=== PATIENT | female | born 1985 | race Caucasian/White ===

== ENCOUNTER 2017-03-10 15:53 | Outpatient (CLI) | payer MEDICAID ==
[~2017-03-10] VITALS: Ht 152.4 cm; Wt 62.9 kg
[~2017-03-10 15:53] MED LIST: HYDR-3498 PO
[2017-03-10 16:34] VITALS: BP 119/79; PULSE 92; RESP 20; Ht 152.4 cm; Wt 62.9 kg
[2017-03-10] MEDS ORDERED: PRENAT PO (16:37)
[2017-03-10] MEDS ORDERED: FERR325C PO (16:37)
--- NOTE | 2017-03-10 16:42 | CONS ---
Date/Time of Note Date/Time of Note DATE: 03/10/17 TIME: 16:39 Assessment/Plan Assessment/Plan Additional Assessment/Plan 31 y/o at 31w 1d with low back pain, suspect musculoskeletal. No e/o ptl. -discharge home with ptl precautions -f/u with OB Consultation Date/Type/Reason Admit Date/Time Reason for Consultation Backpain Hx of Present Illness e1 y/o at 31w 1d who presents with low backpain. Patient reports pain improved with rest. Concerned she had episode of spotting last week after intercourse. No further bleeding. Denies LOF. Getting PNC, no complications. h/o term x.2 Per HPI. Other systems negative. Past Medical History Medical History: no pertinent history Past Surgical History Past Surgical Hx: no surgical history Social History Denies habits. Smoking Status: Never smoker Exam/Review of Systems Vital Signs Vitals Vital Signs Date Time Temp Pulse Resp B/P Pulse Ox O2 Delivery O2 Flow Rate FiO2 03/10/17 16:34 98.2 92 20 119/79 97 Room Air Gen: NAD HEENT: NCAT CV: RRR Pulm: CTAB Abd: gravid, NT Back: no CVAT Ext: NT FHT: reactive Erskine: no UCs FANY ZAIDI March 10, 2017 16:42
--- NOTE | 2017-03-10 18:06 | TRIAGE ---
OB Triage Datetime Report Generated by CPN: 03/10/2017 18:06 Datetime: 03/10/2017 16:33 Time of Arrival: 03/10/2017 15:53 EGA: 31.0 Arrived By: Ambulatory Arrived From: Home Chief Complaint: LOW BACK PAIN Movement: Present Contractions: Denies/Absent Rupture of Membranes: Denies Vaginal Bleeding: None Vaginal Discharge: Denies Recent Sexual Intercouse: Yes Patient Complaints: Back Pain Time Provider Notified: 03/10/2017 16:30 Provider Notified: DR. ZAIDI Initial Plan: NST Datetime: 03/10/2017 16:29 Stage of : OB Triage Labor Evaluation Frequency: 0 Duration (sec)2399: 0 Quality: Mild Resting Tone [place]: Relaxed Contraction Comments: NO UC'S NOTED PT DENIES UC'S Heart Rate FHR Baseline Rate: 135 Monitor Mode: External US Variability: Moderate 6-25 bpm Accelerations: 15X15 Decelerations: None Category: Category II Datetime: 03/10/2017 16:23 Stage of : OB Triage Maternal Assessment Level of Consciousness: Fully Conscious DTR's/Clonus: DTRs 2+; No Clonus Headache: Denies Blurred Vision: No Respiratory Effort: Unlabored; Regular Rhythm; Equal Expansion Breath Sounds, Left: Clear and Equal Breath Sounds, Right: Clear and Equal Nausea/Vomiting: Denies RUQ Epigastric Pain: Denies Facial Edema: None Temperature Route: Axillary Fall Risk Assessment History of Falling: (0) No Secondary Diagnosis: (0) No Ambulatory Aid: (0) Bedrest/Nurse Assist IV Therapy: (0) No Gait: (0) Normal/Bedrest/Immobile Mental Status: (0) Oriented to Own Ability Fall Score: 0 Fall Risk Score Definition: No Risk: No action required
== END 2017-03-10 16:40 | disposition home or self-care (01) ==
LOC: L-D 15:53 → OBT 15:53
PROVIDERS: ATTEND Obstetrics & Gynecology
DX: O26.893 Other specified pregnancy related conditions, third trimester (principal); M54.5 Low back pain; Z3A.31 31 weeks gestation of pregnancy
CPT/HCPCS: G0463

== ENCOUNTER 2017-03-21 14:30 | Outpatient (CLI) | payer MEDICAID ==
[~2017-03-21] VITALS: Ht 152.4 cm; Wt 67.7 kg
[~2017-03-21 14:30] MED LIST changes: +FERR325C PO; -HYDR-3498 PO; +PRENAT PO
[2017-03-21 14:52] VITALS: Ht 152.4 cm; Wt 67.7 kg
[2017-03-21 14:53] VITALS: BP 113/72; RESP 16
--- NOTE | 2017-03-21 15:53 | RADRPT ---
PROCEDURE: US OB biophysical profile. CLINICAL INDICATION: CHECK UP TECHNIQUE: Multiple sonographic images of the pelvis were obtained. The images were reviewed on a PACS workstation. COMPARISON: None FINDINGS: Presentation: Cephalic Cardiac activity is present with 131 beats per minute. The placenta is anterior, grade II. MVP: Not available. Amniotic fluid index: 16.4 cm Biophysical profile: movement 2/2 tone 2/2. breathing 2/2 MAX 2/2 Total 06/06 IMPRESSION: 1. Normal biophysical profile. 2. Single viable fetus present C A cephalic lie with a heart rate of 131 beats per minute. RPTAT:AAJJ . Physician Shay Date Time Electronically viewed and signed by Jaren Martínez Physician on 03/21/2017 15:52 /
[2017-03-21 17:48] LABS: ADD UMIC YES; URINE BILIRUBIN (Dip) NEGATIVE (NEGATIVE); URINE BLOOD (Dip) TRACE (NEGATIVE); URINE COLOR LT. YELLOW (YELLOW); URINE GLUCOSE (Dip) NEGATIVE (NEGATIVE); URINE KETONES (Dip) NEGATIVE (NEGATIVE); URINE LEUKOCYTE ESTERASE (Dip) 2+ (NEGATIVE); URINE NITRITE (Dip) NEGATIVE (NEGATIVE); URINE TOTAL PROTEIN (Dip) NEGATIVE (NEGATIVE); URINE UROBILINOGEN (Dip) 0.2 E.U./dL (0.1-1.0)
[2017-03-21 17:49] LABS: ADD SCAN DIFF NO; BASOPHILS % 0.4 % (0.0-2.0); EOSINOPHILS # 0.1 10^3/ul (0.0-0.5); HEMATOCRIT 31.8 % (37.0-47.0); HEMOGLOBIN 11.1 g/dl (12.0-16.0); LYMPHOCYTES # 1.8 10^3/ul (0.8-2.9); LYMPHOCYTES % 25.1 % (15.0-51.0); MEAN CORPUSCULAR HEMOGLOBIN 30.2 pg (29.0-33.0); MEAN CORPUSCULAR HGB CONC 34.9 g/dl (32.0-37.0); MEAN CORPUSCULAR VOLUME 86.4 fl (82.0-101.0); MEAN PLATELET VOLUME 9.4 fl (7.4-10.4); MONOCYTE # 0.5 10^3/ul (0.3-0.9); MONOCYTES % 7.4 % (0.0-11.0); NEUTROPHIL # 4.8 10^3/ul (1.6-7.5); NEUTROPHILS % 65.4 % (39.0-77.0); PLATELET COUNT 224 10^3/UL (140-415); RED BLOOD COUNT 3.68 10^6/ul (4.20-5.40); RED CELL DISTRIBUTION WIDTH 13.2 % (11.5-14.5); WHITE BLOOD COUNT 7.3 10^3/ul (4.8-10.8)
[2017-03-21 17:58] LABS: ALBUMIN/GLOBULIN RATIO 0.96; CALCIUM 8.6 mg/dl (8.4-10.2); CREATININE 0.51 mg/dl (0.44-1.00); POTASSIUM 3.3 mmol/L (3.5-5.1); TOTAL PROTEIN 6.1 g/dl (6.1-8.1); URIC ACID 3.8 mg/dl (3.1-7.9)
[2017-03-21 17:59] LABS: BACTERIA,URINE MODERATE; SQUAMOUS EPITHELIAL CELL,UR MODERATE; URINE RBCS 0-2 /HPF (0)
--- NOTE | 2017-03-21 18:29 | TRIAGE ---
OB Triage Datetime Report Generated by CPN: 03/21/2017 18:29 Datetime: 03/21/2017 15:52 Stage of : OB Triage Labor Evaluation Frequency: X2 Monitor Mode: External Duration (sec)2399: 30-50 Pattern: Normal: <= 5 Contractions in 10 Minutes Resting Tone [place]: Relaxed Heart Rate FHR Baseline Rate: 125 Monitor Mode: External US Variability: Moderate 6-25 bpm Accelerations: 15X15 Decelerations: None Category: Category I Pain Assessment Pain Presence: None/Denies Pain Type: N/A Datetime: 03/21/2017 15:40 Comments: US AT BEDSIDE Datetime: 03/21/2017 14:42 Stage of : OB Triage Assessment Type: Triage Maternal Assessment Level of Consciousness: Fully Conscious DTR's/Clonus: DTRs 2+; No Clonus Headache: Denies Blurred Vision: No Respiratory Effort: Unlabored; Regular Rhythm; Equal Expansion Breath Sounds, Left: Clear and Equal Breath Sounds, Right: Clear and Equal Nausea/Vomiting: Denies RUQ Epigastric Pain: Denies Lower Extremities Edema: None Degree: None Upper Extremities Edema: None Degree: None Facial Edema: None Temperature Route: Axillary Fall Risk Assessment History of Falling: (0) No Secondary Diagnosis: (0) No Ambulatory Aid: (0) Bedrest/Nurse Assist IV Therapy: (0) No Gait: (0) Normal/Bedrest/Immobile Mental Status: (0) Oriented to Own Ability Fall Score: 0 Fall Risk Score Definition: No Risk: No action required Datetime: 03/21/2017 14:40 Time of Arrival: 03/21/2017 14:40 EGA: 32.4 Arrived By: Ambulatory Arrived From: Dr. Gaston Chief Complaint: PT C/O RIGHT VISUAL DISTURBANCE. PT FEELS SOMETHING IN HER RIGH EYES Movement: Present Contractions: Denies/Absent Rupture of Membranes: Denies Vaginal Bleeding: None Vaginal Discharge: Denies Recent Sexual Intercouse: Denies Abdominal Trauma: Not Applicable Patient Complaints: None Time Provider Notified: 03/21/2017 15:21 Provider Notified: DR. ZARATE Initial Plan: NSR BPP- TO CLEAR BABY Datetime: 03/10/2017 16:33 EGA: 31.0 Datetime: 03/10/2017 16:23 Fall Score: 0 Fall Risk Score Definition: No Risk: No action required
--- NOTE | 2017-03-21 18:44 | CONS ---
Date/Time of Note Date/Time of Note DATE: 03/21/17 TIME: 18:26 Consultation Date/Type/Reason Admit Date/Time March 21, 2017 OB triage consult Reason for Consultation This patient is 31 years old 3 para 2 postdelivery spontaneous vaginal packing with estimated date of confinement May 12, 2017 which makes her now 32 weeks and 4 days Came to OB triage with complaint of visual disturbance on her right eye. It raised the question of possible atypical PIH. On examination she is a well-developed well-nourished lady with no particular complaint except difficulty on her right on. Her vital signs are within normal limits with blood pressure of 112/72, pulse rate of 90, respiration 16, temperature 98. No ankle edema. Knee-jerk reflex about 1+ No complaint of headache Abdomen is soft No contraction. heart tone is normal, with fairly good variability, no deceleration. Her lab works were reviewed. Her urinalysis was completely normal. Her CBC was done except for mild anemia there was no other abnormal finding hemoglobin 11.1 hematocrit PIH lab test were basically normal On ultrasound study there was a single fetus in cephalic presentation with a heartbeat of 131 placenta was grade 2 and anterior her amniotic fluid index was 16.4 with biophysical profile of 8/8 Laboratory Tests Test 03/21/17 17:00 03/21/17 17:05 White Blood Count 7.310^3/ul Red Blood Count 3.6810^6/ul Hemoglobin 11.1g/dl Hematocrit 31.8% Mean Corpuscular Volume 86.4fl Mean Corpuscular Hemoglobin 30.2pg Mean Corpuscular Hemoglobin Concent 34.9g/dl Red Cell Distribution Width 13.2% Platelet Count 58543^3/UL Mean Platelet Volume 9.4fl Neutrophils % 65.4% Lymphocytes % 25.1% Monocytes % 7.4% Eosinophils % 1.0% Basophils % 0.4% Nucleated Red Blood Cells % 0.0/100WBC Neutrophils # 4.810^3/ul Lymphocytes # 1.810^3/ul Monocytes # 0.510^3/ul Eosinophils # 0.110^3/ul Basophils # 0.010^3/ul Nucleated Red Blood Cells # 0.010^3/ul Sodium Level 134mmol/L Potassium Level 3.3mmol/L Chloride Level 108mmol/L Carbon Dioxide Level 22mmol/L Anion Gap 7 Blood Urea Nitrogen 7mg/dl Creatinine 0.51mg/dl Glucose Level 102mg/dl Uric Acid 3.8mg/dl Calcium Level 8.6mg/dl Total Bilirubin 0.0mg/dl Direct Bilirubin 0.00mg/dl Indirect Bilirubin 0.0mg/dl Aspartate Amino Transf (AST/SGOT) 24IU/L Alanine Aminotransferase (ALT/SGPT) 35IU/L Alkaline Phosphatase 88IU/L Total Protein 6.1g/dl Albumin 3.0g/dl Globulin 3.10g/dl Albumin/Globulin Ratio 0.96 Urine Color LT. YELLOW Urine Clarity CLEAR Urine pH 6.5 Urine Specific [place] <=1.005 Urine Ketones NEGATIVE Urine Nitrite NEGATIVE Urine Bilirubin NEGATIVE Urine Urobilinogen 0.2 E.U./dL Urine Leukocyte Esterase 2+ Urine Microscopic RBC 0-2/HPF Urine Microscopic WBC 0-2/HPF Urine Squamous Epithelial Cells MODERATE Urine Bacteria MODERATE Urine Hemoglobin TRACE Urine Glucose NEGATIVE% Urine Total Protein NEGATIVE Constitutional: No chills, No diaphoresis, No disoriented, No febrile, No improved, No no complaints, No other, No poor po, No requiring IVF, No requiring O2 Eyes: other (Difficulty with right eye), No discharge, No no complaints, No pain, No redness, No visual change ENT: No bleeding, No congestion, No discharge, No dysphagia, No no complaints, No other, No pain, No sore throat Respiratory: No cough, No no complaints, No other, No pain, No pleuritic pain, No shortness of breath, No sputum, No wheezing Cardiovascular: No chest pain, No edema, No lightheadedness, No no complaints, No orthopenea, No other, No palpitations, No paroxysmal nocturnal dyspnea Gastrointestinal: No blood, No constipation, No decreased appetite, No diarrhea , No flatus, No nausea, No no complaints, No other, No pain, No passing stool, No vomiting Genitourinary: No bleeding, No discharge, No dysuria, No flank pain, No hematuria, No no complaints, No other Musculoskeletal: No back pain, No bone/joint pain, No neck pain, No no complaints, No other, No restricted range of motion, No swelling Skin: No bruising, No erythema, No laceration, No no complaints, No other, No pruritis, No rash, No skin lesions Neurologic: No confusion, No dizziness, No focal-weakness, No headache, No no complaints, No other, No seizure, No syncope Endocrine: No dry skin, No no complaints, No other, No polydypsia, No polyuria , No temp intolerance Lymphatic: No adenopathy, No lymphadema, No no complaints, No other, No tender nodes Psychological: No anxiety, No confusion, No depression, No nl mood/affect, No no complaints, No other, No suicidal Additional Comments Due to visual disturbance as she has to her right arm she will be referred to rail assembler for further studies Social History Smoking Status: Never smoker Exam/Review of Systems Vital Signs Vitals Vital Signs Date Time Temp Pulse Resp B/P Pulse Ox O2 Delivery O2 Flow Rate FiO2 03/21/17 14:53 16 113/72 Room Air Results Result Diagram: 03/21/17 1700 03/21/17 1700 Results 24 hrs Laboratory Tests Test 03/21/17 17:00 03/21/17 17:05 White Blood Count 7.3 Red Blood Count 3.68 #L Hemoglobin 11.1 #L Hematocrit 31.8 #L Mean Corpuscular Volume 86.4 Mean Corpuscular Hemoglobin 30.2 Mean Corpuscular Hemoglobin Concent 34.9 Red Cell Distribution Width 13.2 Platelet Count 224 Mean Platelet Volume 9.4 # Neutrophils % 65.4 Lymphocytes % 25.1 Monocytes % 7.4 Eosinophils % 1.0 Basophils % 0.4 Nucleated Red Blood Cells % 0.0 Neutrophils # 4.8 Lymphocytes # 1.8 Monocytes # 0.5 Eosinophils # 0.1 Basophils # 0.0 Nucleated Red Blood Cells # 0.0 Sodium Level 134 L Potassium Level 3.3 L Chloride Level 108 Carbon Dioxide Level 22 Anion Gap 7 L Blood Urea Nitrogen 7 Creatinine 0.51 Glucose Level 102 Uric Acid 3.8 Calcium Level 8.6 Total Bilirubin 0.0 L Direct Bilirubin 0.00 Indirect Bilirubin 0.0 Aspartate Amino Transf (AST/SGOT) 24 Alanine Aminotransferase (ALT/SGPT) 35 Alkaline Phosphatase 88 Total Protein 6.1 Albumin 3.0 L Globulin 3.10 Albumin/Globulin Ratio 0.96 Urine Color LT. YELLOW Urine Clarity CLEAR Urine pH 6.5 Urine Specific [place] <=1.005 L Urine Ketones NEGATIVE Urine Nitrite NEGATIVE Urine Bilirubin NEGATIVE Urine Urobilinogen 0.2 E.U./dL Urine Leukocyte Esterase 2+ H Urine Microscopic RBC 0-2 Urine Microscopic WBC 0-2 Urine Squamous Epithelial Cells MODERATE Urine Bacteria MODERATE Urine Hemoglobin TRACE Urine Glucose NEGATIVE Urine Total Protein NEGATIVE SUZETTE ESTRADA MD March 21, 2017 18:38
== END 2017-03-21 18:22 | disposition home or self-care (01) ==
LOC: L-D 14:30 → OBT 14:30
PROVIDERS: ATTEND Obstetrics & Gynecology
DX: O26.893 Other specified pregnancy related conditions, third trimester (principal); H53.9 Unspecified visual disturbance; Z3A.32 32 weeks gestation of pregnancy
CPT/HCPCS: 36415; 76818; 80053; 81001; 84560; 85025; Z7500; G0463

== ENCOUNTER 2017-05-10 09:35 | Inpatient (IN) | payer MEDICAID ==
[~2017-05-10] VITALS: Ht 152.4 cm; Wt 65.1 kg
[2017-05-10 09:42] VITALS: Ht 152.4 cm; Wt 65.1 kg
[2017-05-10 09:43] VITALS: BP 124/83; PULSE 80; RESP 20
[2017-05-10] MEDS ORDERED: LACTATED RINGER'S 1,000 ML IV SCH (13:13)
--- NOTE | 2017-05-10 13:24 | TRIAGE ---
OB Triage Datetime Report Generated by CPN: 05/10/2017 13:24 Datetime: 05/10/2017 13:00 Labor Evaluation Frequency: 2-5 Monitor Mode: External Duration (sec)2399: 40-80 Quality: Strong Pattern: Normal: <= 5 Contractions in 10 Minutes Resting Tone [place]: Relaxed Heart Rate FHR Baseline Rate: 130 Monitor Mode: External US FHR Baseline Changes: No Baseline Change Variability: Moderate 6-25 bpm Accelerations: 15X15 Decelerations: None Category: Category I Pain Assessment Pain Scale: 7 Pain Presence: Intermittent Pain Type: Contraction Pain Location: Abdomen Pain Goal: 2 Pain Relief Measures: Comfort Measures Datetime: 05/10/2017 12:22 Vaginal Exam Dilatation (cms): 3.5 Effacement (%): 100 Station: -2 Exam By: MAY Datetime: 05/10/2017 11:00 Labor Evaluation Frequency: 1-4 Monitor Mode: External Duration (sec)2399: 40-100 Quality: Strong Pattern: Normal: <= 5 Contractions in 10 Minutes Resting Tone [place]: Relaxed Heart Rate FHR Baseline Rate: 130 Monitor Mode: External US FHR Baseline Changes: No Baseline Change Variability: Moderate 6-25 bpm Accelerations: 15X15 Decelerations: None Category: Category I Pain Assessment Pain Scale: 7 Pain Presence: Intermittent Pain Type: Contraction Pain Location: Abdomen; Back Pain Goal: 2 Pain Relief Measures: Comfort Measures Datetime: 05/10/2017 10:30 Labor Evaluation Frequency: 2-7 Monitor Mode: External Duration (sec)2399: 40-100 Quality: Strong Pattern: Normal: <= 5 Contractions in 10 Minutes Resting Tone [place]: Relaxed Heart Rate FHR Baseline Rate: 130 Monitor Mode: External US FHR Baseline Changes: No Baseline Change Variability: Moderate 6-25 bpm Accelerations: 15X15 Decelerations: None Category: Category I Pain Assessment Pain Scale: 7 Pain Presence: Intermittent Pain Type: Contraction Pain Location: Abdomen; Back Pain Goal: 2 Pain Relief Measures: Comfort Measures Membrane Status: Intact Datetime: 05/10/2017 10:15 Vaginal Exam Dilatation (cms): 2.0 Effacement (%): 100 Station: -2 Exam By: MAY Vaginal Bleeding: None Cervix, Consistency: Soft Cervix, Position: Midposition Presentation 'A': Cephalic Datetime: 05/10/2017 10:02 Labor Evaluation Frequency: 1.5-8 Monitor Mode: External Duration (sec)2399: 60-120 Quality: Strong Pattern: Normal: <= 5 Contractions in 10 Minutes Resting Tone [place]: Relaxed Heart Rate FHR Baseline Rate: 130 Monitor Mode: External US FHR Baseline Changes: No Baseline Change Variability: Moderate 6-25 bpm Accelerations: 15X15 Decelerations: None Category: Category I Pain Assessment Pain Scale: 7 Pain Presence: Intermittent Pain Type: Contraction Pain Location: Abdomen Pain Goal: 2 Pain Relief Measures: Comfort Measures Datetime: 05/10/2017 09:35 Stage of : OB Triage Assessment Type: Triage Maternal Assessment Level of Consciousness: Fully Conscious DTR's/Clonus: DTRs 2+; No Clonus Headache: Denies Blurred Vision: No Respiratory Effort: Unlabored; Regular Rhythm; Equal Expansion Nausea/Vomiting: Denies RUQ Epigastric Pain: Denies Lower Extremities Edema: None Degree: None Upper Extremities Edema: None Degree: None Facial Edema: None Fall Risk Assessment History of Falling: (0) No Secondary Diagnosis: (0) No Ambulatory Aid: (0) Bedrest/Nurse Assist IV Therapy: (0) No Gait: (0) Normal/Bedrest/Immobile Mental Status: (0) Oriented to Own Ability Fall Score: 0 Fall Risk Score Definition: No Risk: No action required Monitor Mode: External Monitor Mode: External US Pain Assessment Pain Scale: 7 Pain Presence: Intermittent Pain Type: Contraction Pain Location: Abdomen; Back Pain Goal: 0 Datetime: 05/10/2017 09:34 Time of Arrival: 05/10/2017 13:23 EGA: 39.5 Arrived By: Wheelchair Arrived From: Home Chief Complaint: CONTRACTIONS Movement: Present Contractions: Irregular Time Contractions Began: 05/10/2017 06:00 Rupture of Membranes: Denies Vaginal Bleeding: None Vaginal Discharge: Denies Recent Sexual Intercouse: Denies Abdominal Trauma: Not Applicable Patient Complaints: Contractions Time Provider Notified: 05/10/2017 11:08 Provider Notified: DR. ACOSTA Initial Plan: EFM, VAGINAL EXAM Datetime: 03/21/2017 14:42 Fall Score: 0 Fall Risk Score Definition: No Risk: No action required Datetime: 03/21/2017 14:40 EGA: 32.4 Datetime: 03/10/2017 16:33 EGA: 31.0 Datetime: 03/10/2017 16:23 Fall Score: 0 Fall Risk Score Definition: No Risk: No action required
[2017-05-10] MEDS ORDERED: MISOPROSTOL 200 MCG TAB PR PRN (13:30)
[2017-05-10] MEDS ORDERED: CARBOPROST 250 MCG INJ IM PRN (13:30)
[2017-05-10] MEDS ORDERED: ACETAMINOPHEN/CODEINE #3 TAB PO PRN ×3 (13:30→18:30)
[2017-05-10] MEDS ORDERED: LIDOCAINE 1% (MPF) 30 ML INJ INJ PRN (13:30)
[2017-05-10] MEDS ORDERED: METHYLERGONOVINE 0.2 MG INJ IM PRN (13:30)
[2017-05-10] MEDS ORDERED: OXYTOCIN 30 UNITS/LR 500 ML IV PRN (13:30)
[2017-05-10] MEDS ORDERED: OXYTOCIN 30 UNITS/LR 500 ML IV SCH ×2 (13:30)
[2017-05-10] MEDS ORDERED: IBUPROFEN 600 MG TAB PO PRN (13:30)
[2017-05-10] MEDS ORDERED: BUTORPHANOL 2 MG INJ IV PRN (13:30)
[2017-05-10] MEDS ORDERED: LACTATED RINGER'S 1,000 ML IV PRN (14:00)
[2017-05-10 14:14] LABS: ADD SCAN DIFF NO
[2017-05-10 14:31] LABS: BASOPHILS % 0.5 % (0.0-2.0); EOSINOPHILS % 0.2 % (0.0-7.0); HEMATOCRIT 39.2 % (37.0-47.0); HEMOGLOBIN 13.8 g/dl (12.0-16.0); LYMPHOCYTES # 1.6 10^3/ul (0.8-2.9); LYMPHOCYTES % 18.9 % (15.0-51.0); MEAN CORPUSCULAR HEMOGLOBIN 30.1 pg (29.0-33.0); MEAN CORPUSCULAR HGB CONC 35.2 g/dl (32.0-37.0); MEAN CORPUSCULAR VOLUME 85.6 fl (82.0-101.0); MONOCYTE # 0.4 10^3/ul (0.3-0.9); MONOCYTES % 4.3 % (0.0-11.0); NEUTROPHIL # 6.6 10^3/ul (1.6-7.5); NEUTROPHILS % 75.4 % (39.0-77.0); PLATELET COUNT 230 10^3/UL (140-415); RED BLOOD COUNT 4.58 10^6/ul (4.20-5.40); RED CELL DISTRIBUTION WIDTH 13.8 % (11.5-14.5); WHITE BLOOD COUNT 8.7 10^3/ul (4.8-10.8)
[2017-05-10 14:33] LABS: INR 0.97; PROTIME 12.9 Sec (12.2-14.2)
--- NOTE | 2017-05-10 17:25 | HP ---
Date/Time of Note Date/Time of Note DATE: 05/10/17 TIME: 17:14 OB - History Hx of Present Free Text/Dictation 31 years old female 3 para 2 EDC of May 12, 2017 admitted to [facility] in labor pelvic examination on admission cervical dilatation 3-4 cm 80% effaced vertex is -2 station and admitted to L&D expecting further progress and possible vaginal delivery Chief Complaint: Labor contractions 3-5 Estimated Due Date: May 12, 2017 : 3 Para: 2 Care: Good Care Ultrasounds: Normal mid trimester US Obstetrical Complications: None Medical Complications: None Past Family/Social History * Past Medical, Surgical, Family and Obstetric Histories reviewed from chart. Rubella: immune RPR/VDRL: Negative GBS Status: Negative HBsAG: Negative OB Admission Exam Vital Signs Vital Signs Vital Signs Date Time Temp Pulse Resp B/P Pulse Ox O2 Delivery O2 Flow Rate FiO2 05/10/17 09:43 98.1 80 20 124/83 Room Air Physical Exam HEENT: WNL Heart: Rhythm Normal Abdomen: WNL Extremities: Normal Reflexes: Normal Cervical Dilatation: 3cm Effacement: 75% Station: -2 Membranes: Intact Amniotic Fluid: Clear Heart Rate: 120's Accelerations: Accelerations Present Decelerations: No Decelerations Varibility: Moderate Contractions on Admission: < 5 Minutes Apart Intensity: Moderate Last 72 hours Lab Results CBC & BMP 05/10/17 13:45 HERNESTO ZARATE MD May 10, 2017 17:25
--- NOTE | 2017-05-10 17:29 | LDN ---
Date/Time of Note Date/Time of Note DATE: 05/10/17 TIME: 17:26 Delivery Summary Normal spontaneous vaginal delivery of a baby boy from OA position shoulders delivered without any difficulty rest of the baby's body followed cord clamped after stopped pulsation placenta spontaneous expulsion inspected complete estimated blood loss 2 50 cc Weeks of Gestation 39 weeks 5 days Placenta Delivered: Spontaneously Meconium: none Episiotomy: No Laceration repair: None Anesthesia type: Epidural Estimated blood loss: 250 Sponge & Needle done & correct: Yes All needle counts correct: Yes Any foreign bodies felt in the: No Problems: Delivery Information Sex Infant Sex: male Apgars 1 Minute: 9 5 Minute: 9 Suctioning Nose & mouth suctioned at lolis: Yes Delee suction performed: No Umbilical Cord Umbilical cord with: 3 Vessels Cord presentations: no nuchal cord Cord Blood was obtained: Yes HERNESTO ZARATE MD May 10, 2017 17:28
[2017-05-10] MEDS: OXYTOCIN 30 UNITS/LR 500 ML IV SCH ×2 (18:21→21:54)
[2017-05-10] MEDS ORDERED: OXYCODONE/ASPIRIN (4.88/325) TAB PO PRN ×2 (18:30)
[2017-05-10] MEDS ORDERED: ACETAMINOPHEN 325 MG TAB PO PRN (18:30)
[2017-05-10] MEDS ORDERED: BENZOCAINE 20% 56 ML SPRAY TOP PRN (18:30)
[2017-05-10] MEDS ORDERED: WITCH HAZEL/GLYCERIN PAD PR PRN (18:30)
[2017-05-10] MEDS ORDERED: ONDANSETRON 4 MG INJ IV PRN (18:30)
[2017-05-10] MEDS ORDERED: DIBUCAINE 1% 30 GM OINT TOP PRN (18:30)
[2017-05-10] MEDS ORDERED: LANOLIN 7 GM TUBE TOP PRN (18:30)
[2017-05-10 18:47] VITALS: BP 117/73; PULSE 75; RESP 18
[2017-05-10 18:59] VITALS: BP 121/74; PULSE 80; RESP 18
[2017-05-10 20:00] VITALS: BP 116/74; PULSE 76; RESP 18
[2017-05-10] MEDS: SENNA/DOCUSATE NA (8.6MG/50MG) TAB PO SCH (21:06)
[2017-05-10] MEDS: IBUPROFEN 600 MG TAB PO SCH (23:47)
[2017-05-11 04:10] VITALS: BP 97/56; PULSE 66; RESP 18
[2017-05-11] MEDS: IBUPROFEN 600 MG TAB PO SCH ×3 (05:25→18:03)
[2017-05-11 08:00] VITALS: BP 118/70; PULSE 72; RESP 18
[2017-05-11] MEDS: SENNA/DOCUSATE NA (8.6MG/50MG) TAB PO SCH ×2 (09:28→21:01)
[2017-05-11 09:57] LABS: ADD SCAN DIFF NO
[2017-05-11 10:00] LABS: BASOPHILS % 0.4 % (0.0-2.0); EOSINOPHILS # 0.1 10^3/ul (0.0-0.5); EOSINOPHILS % 0.6 % (0.0-7.0); HEMATOCRIT 37.2 % (37.0-47.0); HEMOGLOBIN 12.6 g/dl (12.0-16.0); LYMPHOCYTES % 20.3 % (15.0-51.0); MEAN CORPUSCULAR HGB CONC 33.9 g/dl (32.0-37.0); MEAN CORPUSCULAR VOLUME 85.7 fl (82.0-101.0); MEAN PLATELET VOLUME 9.9 fl (7.4-10.4); MONOCYTE # 0.5 10^3/ul (0.3-0.9); MONOCYTES % 4.9 % (0.0-11.0); NEUTROPHIL # 7.3 10^3/ul (1.6-7.5); NEUTROPHILS % 73.2 % (39.0-77.0); PLATELET COUNT 210 10^3/UL (140-415); RED BLOOD COUNT 4.34 10^6/ul (4.20-5.40); RED CELL DISTRIBUTION WIDTH 13.8 % (11.5-14.5)
--- NOTE | 2017-05-11 11:56 | PN ---
Date/Time of Note Date/Time of Note DATE: 05/11/17 TIME: 11:54 OB Subjective Subjective Subjective Post normal vaginal delivery day 1 Afebrile vital signs are stable abdomen soft uterus firm lochia normal extremity normal ambulation encouraged HERNESTO ZARATE MD May 11, 2017 11:55
--- NOTE | 2017-05-11 11:57 | PD.PPDC ---
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
[2017-05-11 15:43] VITALS: BP 128/76; PULSE 62; RESP 18
[2017-05-11 20:30] VITALS: BP 107/73; PULSE 80; RESP 18
[2017-05-12] VITALS: BP 105/64; PULSE 69; RESP 18
[2017-05-12] MEDS: IBUPROFEN 600 MG TAB PO SCH ×3 (00:24→11:53)
[2017-05-12 03:30] VITALS: BP 103/64; PULSE 63; RESP 18
[2017-05-12 07:45] VITALS: BP 112/63; PULSE 67; RESP 18
[2017-05-12] MEDS ORDERED: MEASLES,MUMPS,RUBELLA VACCINE INJ SC* ONE (09:00)
[2017-05-12] MEDS: SENNA/DOCUSATE NA (8.6MG/50MG) TAB PO SCH (09:10)
== END 2017-05-12 15:15 | disposition home or self-care (01) | DRG 775 ==
LOC: OBT 09:35 → L-D 09:36 → OBT 12:51 → L-D 16:00 → PP1 18:30
PROVIDERS: ADMIT Obstetrics & Gynecology; ATTEND Obstetrics & Gynecology
PROC: 10E0XZZ Delivery of Products of Conception, External Approach (ICD-10-PCS; principal; 2017-05-10)
PROC: 3E00X4Z Introduction of Serum, Toxoid and Vaccine into Skin and Mucous Membranes, External Approach (ICD-10-PCS; 2017-05-10)
DX: O80 Encounter for full-term uncomplicated delivery (principal); Z23 Encounter for immunization; Z3A.39 39 weeks gestation of pregnancy; Z37.0 Single live birth
CPT/HCPCS: 85025; 85610; 85730; 86592; 86900; 86901; 87340; G0463; J2590; J7120

== ENCOUNTER 2017-10-23 15:12 | Emergency (ER) | payer SELFPAY ==
[~2017-10-23] VITALS: Ht 162.6 cm; Wt 56.1 kg
[2017-10-23 15:14] VITALS: Ht 162.6 cm; Wt 56.1 kg
== END 2017-10-23 19:15 | disposition left against medical advice (07) ==
LOC: FTE 15:12
DX: Z53.21 Procedure and treatment not carried out due to patient leaving prior to being seen by health care provider (principal)